=== PATIENT | female | born 1995 | race American Indian/Alaskan Native ===

== ENCOUNTER 2017-04-22 14:40 | Outpatient (CLI) | payer MEDICAID ==
--- NOTE | 2017-04-22 15:59 | Ultrasound Report ---
Targeted left breast ultrasound in a 22-year-old female. History: Palpable nodule in the left breast. Findings: The study was performed from the 6:00 to the 11:00 position. There is no evidence of cystic or solid mass. Impression: Negative study.
== END 2017-04-22 14:41 | disposition home or self-care (01) ==
LOC: US 14:40
PROVIDERS: ATTEND Obstetrics & Gynecology
DX: N63 Unspecified lump in breast (principal); N60.12 Diffuse cystic mastopathy of left breast